=== PATIENT | male | born 1995 | race Two or more races ===

== ENCOUNTER → 2016-10-18 | Outpatient (CLI) | payer OTHER ==
[~2016-10-18] MED LIST: IBUP800T23 PO
[2016-10-18 11:32] LABS: AUTOMATED NEUTROPHIL # 3.6 TH/MM3 (1.8-7.7); BASOPHIL # 0.1 TH/MM3 (0-0.2); EOSINOPHIL # 0.3 TH/MM3 (0-0.4); EOSINOPHIL % 5.1 % (0.0-4.0); HEMATOCRIT 46.1 % (39.0-51.0); HEMO FLAGS DIFF FINAL; LYMPH % 31.7 % (9.0-44.0); LYMPHOCYTE # 2.1 TH/MM3 (1.0-4.8); MEAN CELL VOLUME 89.3 FL (80.0-100.0); MEAN CORPUSCULAR HEMOGLOBIN 30.5 PG (27.0-34.0); MEAN CORPUSCULAR HGB CONC 34.2 % (32.0-36.0); NEUT % 53.2 % (16.0-70.0); PLATELET COUNT 234 TH/MM3 (150-450); RED BLOOD COUNT 5.16 MIL/MM3 (4.50-5.90); RED CELL DISTRIBUTION WIDTH 12.5 % (11.6-17.2); WHITE BLOOD COUNT 6.7 TH/MM3 (4.0-11.0)
[2016-10-18 12:01] LABS: ALKALINE PHOSPHATASE 75 U/L (45-117); ALT (GPT) 33 U/L (9-52); ANION GAP 1 MEQ/L (5-15); AST (GOT) 20 U/L (15-39); BICARBONATE 32.2 MEQ/L (21.0-32.0); BLOOD UREA NITROGEN 16 MG/DL (7-18); CHLORIDE 106 MEQ/L (98-107); FERRITIN 108 NG/ML (26-388); GLOMERULAR FILTRATION RATE 95 ML/MIN (>89); GLUCOSE,FASTING 95 MG/DL (74-99); LDL CHOLESTEROL 81 MG/DL (0-99); POTASSIUM 4.6 MEQ/L (3.5-5.1); SODIUM (NA) 139 MEQ/L (136-145); TOTAL BILIRUBIN ADULT 0.2 MG/DL (0.2-1.0); TRANSFERRIN IRON PROFILE 270 MG/DL (200-360)
[2016-10-18 12:02] LABS: THYROXINE (T4) 8.5 MCG/DL (4.5-12.1)
== END ==
LOC: CLAB 10:58
PROVIDERS: ATTEND Family Medicine
DX: Z00.00 Encounter for general adult medical examination without abnormal findings (principal)
CPT/HCPCS: 36415; 80053; 80061; 82728; 83540; 83550; 84436; 84443; 84466; 85025; 86038

== ENCOUNTER 2016-12-12 12:22 | Emergency (ER) | payer OTHER ==
[2016-12-12 12:23] VITALS: BP 100/56; PULSE 100; RESP 20; TEMP 98; O2SAT 96
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
[2016-12-12] MEDS ORDERED: KETOROLAC TROMETHAMINE 60 MG/2 ML (IM) VIAL IM ONE (14:00)
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
[2016-12-12] MEDS ORDERED: IBUP800T23 PO (14:14)
== END 2016-12-12 14:34 | disposition home or self-care (01) ==
LOC: NEPB 12:22
DX: S00.83XA Contusion of other part of head, initial encounter (principal); Y04.2XXA Assault by strike against or bumped into by another person, initial encounter
CPT/HCPCS: 70450; 70486; 96372; 99284; J1885

== ENCOUNTER 2018-03-12 16:39 | Emergency (ER) | payer OTHER ==
[~2018-03-12] VITALS: Ht 180.3 cm; Wt 86.7 kg
[~2018-03-12 16:39] MED LIST changes: +IBUP1TAB7 PO; -IBUP800T23 PO
[2018-03-12 16:41] VITALS: BP 159/82; PULSE 90; RESP 16; TEMP 98.7; O2SAT 97
[2018-03-12] MEDS ORDERED: ACETAMINOPHEN 500 MG CPLT PO ONE (17:45)
[2018-03-12] MEDS ORDERED: AMOXICILLIN/CLAVULANATE K 875 MG TAB PO ONE (17:45)
[2018-03-12] MEDS ORDERED: DEXAMETHASONE SOD PHOS 4 MG/ML VIAL IM ONE (17:45)
--- NOTE | 2018-03-12 17:48 | PD ---
HPI Chief Complaint: ENT Complaint Time Seen by Provider: 17:33 Travel History International Travel<30 days: No Contact w/Intl Traveler<30days: No Traveled to known affect area: No History of Present Illness HPI 22 year old male with sore throat 3 days. He believes this is strep throat. Denies fever chills. Reports he noticed "sores" in the back of the throat several days ago as which since resolved. He reports pain with swallowing. Denies difficulty eating, drinking or swallowing secretions. No change in voice. Symptom severity is moderate. Has not attempted any Tylenol or ibuprofen today. PFSH Past Medical History Medical History: Denies Significant Hx Hx Anticoagulant Therapy: No Diminished Hearing: No Immunizations Current: Yes Tetanus Vaccination: > 5 Years Influenza Vaccination: No Past Surgical History Surgical History: No Previous Surgery Social History Alcohol Use: No Tobacco Use: No Substance Use: No Allergies-Medications (Allergen,Severity, Reaction): Coded Allergies: No Known Allergies (Unverified Adverse Reaction, Unknown, 03/12/18) Reported Meds & Prescriptions Reported Meds & Active Scripts Active No Active Prescriptions or Reported Medications Review of Systems Except as stated in HPI: all other systems reviewed are Neg General / Constitutional: No: Fever Eyes: No: Visual changes HENT: Positive: Sore Throat Cardiovascular: No: Chest Pain or Discomfort Respiratory: No: Shortness of Breath Gastrointestinal: No: Abdominal Pain Genitourinary: No: Dysuria Physical Exam Narrative GENERAL: Alert and well-appearing 22-year-old male. Nontoxic-appearing. SKIN: Warm and dry. No rash. HEAD: Normocephalic. EYES: No injection or drainage. ENT: Pharyngeal erythema. Mild tonsillar hypertrophy. No exudate. Uvula is midline. Airways patent. Normal phonation. Mucous membranes are pink and moist. NECK: Supple, trachea midline. Right-sided mild submandibular lymphadenopathy. No meningismus. CARDIOVASCULAR: Regular rate and rhythm without murmurs, gallops, or rubs. RESPIRATORY: Breath sounds equal bilaterally. No accessory muscle use. GASTROINTESTINAL: nondistended. MUSCULOSKELETAL: No cyanosis, or edema. Data Data Last Documented VS Vital Signs Date Time Temp Pulse Resp B/P (MAP) Pulse Ox O2 Delivery O2 Flow Rate FiO2 03/12/18 16:41 98.7 90 16 159/82 (107) 97 Orders Orders Group A Rapid Strep Screen (03/12/18 17:14) Strep Culture (Group A) (03/12/18 17:21) Dexamethasone Inj (Decadron Inj) (03/12/18 17:45) Acetaminophen (Tylenol) (03/12/18 17:45) Amoxicil-Clavulanate (Augmentin) (03/12/18 17:45) MDM Medical Decision Making Medical Screen Exam Complete: Yes Emergency Medical Condition: Yes Differential Diagnosis Strep pharyngitis, viral pharyngitis, peritonsillar abscess unlikely Narrative Course 22-year-old male here with sore throat 3 days. He is nontoxic appearing. His airways patent. Vital signs are stable. His exam is consistent with pharyngitis. Rapid strep was negative. Patient's mother called requesting to speak to her nurse and asking the blood work be done. Given the patient's history, vital signs, physical exam do not feel any further workup is warranted. Return precautions were discussed. Patient verbalizes understanding and agrees to plan Diagnosis Primary Impression: Pharyngitis Qualified Codes: J02.9 - Acute pharyngitis, unspecified Referrals: Primary Care Physician Departure Forms: Tests/Procedures, Work Release Enter return to work date: Mar 14, 2018 Additional Instructions: Medication as directed. Drink plenty of fluids. Tylenol and ibuprofen for pain. Follow-up with your primary doctor Scripts No Active Prescriptions or Reported Meds Disposition: 01 DISCHARGE HOME Condition: Stable Adamaris Farr Mar 12, 2018 17:48
[2018-03-12] MEDS ORDERED: AUGM875T3 PO (17:56)
== END 2018-03-12 18:03 | disposition home or self-care (01) ==
LOC: PHEFT 16:39
DX: J02.0 Streptococcal pharyngitis (principal)
CPT/HCPCS: 87081; 87880; 96372; 99283; J1100